=== PATIENT | female | born 2000 | race Caucasian/White ===

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

== ENCOUNTER 2023-05-15 15:41 | Observation (INO) | payer OTHER, MEDICAID, SELFPAY ==
[2023-05-15 16:06] LABS: Add Manual Diff / Slide Review NO; Basophils Absolute Auto 100 /uL (0-100); Basophils Percent Auto 0.7 % (0-2); Eosinophils Absolute Auto 100 /uL (0-450); Eosinophils Percent Auto 0.5 % (2-4); Hematocrit 35.3 % (36-46); Hemoglobin 12.3 g/dL (12.0-16.0); Lymphocytes Absolute Auto 2200 /uL (1100-4500); Lymphocytes Percent Auto 17.3 % (25-40); Mean Corpuscular HGB Conc 34.8 % (30-36); Mean Corpuscular Hemoglobin 31.1 PG (26-34); Mean Corpuscular Volume 89.3 fL (80-100); Monocytes Absolute Auto 800 /uL (0-900); Monocytes Percent Auto 6.5 % (3-14); Neutrophils Absolute Auto 9500 /uL (1500-7000); Platelet Count 257 X10^3/uL (150-400); Red Blood Cell Count 3.95 X10^6/uL (4.0-5.2); Red Cell Distribution Width 13.2 % (11.6-14.8); White Blood Cell Count 12.7 X10^3/uL (4.5-11.0)
[2023-05-15] MEDS: LACTATED RINGERS 1,000 ML 1000 ML IV ×2 (16:13→20:00)
[2023-05-15 16:17] LABS: Alanine Aminotransferase 23 IU/L (<35); Albumin 3.8 g/dL (3.5-5.0); Albumin Globulin Ratio 1.2 (1.0-2.8); Alkaline Phosphatase 90 U/L (38-126); Aspartate Aminotransferase 26 IU/L (14-36); BUN Creatinine Ratio 15.4 (6-22); Bilirubin Total 0.5 mg/dL (0.2-1.3); Blood Urea Nitrogen 6 mg/dL (7-17); Calcium 8.7 mg/dL (8.4-10.2); Carbon Dioxide 22 mmol/L (22-32); Chloride 104 mmol/L (98-107); Estimated Glomerular Filt Rate > 60 mL/min (>60); Globulin 3.2 g/dL (1.7-4.1); Glucose 87 mg/dL (70-100); HEMOLYSIS < 15 (0-50); Potassium 3.9 mmol/L (3.4-5.1); Sodium 133 mmol/L (137-145)
[2023-05-15] MEDS: TRAMADOL 50 MG TABLET 100 MG PO (16:18)
[2023-05-15] MEDS: SUMAtriptan 25 MG TABLET 100 MG PO (16:32)
[2023-05-15] MEDS: OXYCODONE IR 10 MG TABLET PO (18:18)
[2023-05-15] MEDS: SUMAtriptan 6 MG/0.5 ML VIAL SUBCUT (18:19)
[2023-05-15] MEDS: hydrOXYzine pamoate 25 MG CAPSULE PO (18:19)
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
== END 2023-05-15 20:56 | disposition home or self-care (01) ==
LOC: LABOR 15:44
PROVIDERS: Admitting Provider Obstetrics & Gynecology; PCP Advanced Practice Midwife; Referring Provider Obstetrics & Gynecology; Visit Provider Obstetrics & Gynecology
DX: O26.893 Other specified pregnancy related conditions, third trimester (principal); G43.109 Migraine with aura, not intractable, without status migrainosus; O09.893 Supervision of other high risk pregnancies, third trimester; Z3A.32 32 weeks gestation of pregnancy
CPT/HCPCS: 59025; 59050; 80053; 85025; 96360; 96372; G0378; G0379; J3030

== ENCOUNTER 2023-06-18 11:25 | Outpatient (CLI) | payer OTHER, MEDICAID, SELFPAY ==
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
[2023-06-18] MEDS: ONDANSETRON 4 MG ODT 8 MG SL (12:06)
[2023-06-18] MEDS: OXYCODONE IR 10 MG TABLET PO (12:25)
[2023-06-18 12:35] LABS: Creatinine Urine Random 121.5 mg/dL; Protein (Total) Urine Random 6 mg/dL (0-12); Protein Creatinine Ratio Urine 0.04 GRAM/24H
== END 2023-06-18 13:20 | disposition home or self-care (01) ==
LOC: LABOR 11:57 → OB 06-21 06:14
PROVIDERS: Nurse Practitioner Obstetrics & Gynecology; PCP Advanced Practice Midwife; Referring Provider Advanced Practice Midwife; Visit Provider Advanced Practice Midwife
DX: O09.93 Supervision of high risk pregnancy, unspecified, third trimester (principal); O26.893 Other specified pregnancy related conditions, third trimester; G43.109 Migraine with aura, not intractable, without status migrainosus; Z3A.37 37 weeks gestation of pregnancy
CPT/HCPCS: 59025; 82570; 84156; G0378; G0379

== ENCOUNTER 2023-06-28 16:01 | Outpatient (CLI) | payer OTHER, MEDICAID, SELFPAY ==
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
== END 2023-06-28 17:13 | disposition home or self-care (01) ==
LOC: OB 07-01 11:55
PROVIDERS: PCP Advanced Practice Midwife; Referring Provider Advanced Practice Midwife; Visit Provider Advanced Practice Midwife
DX: O09.93 Supervision of high risk pregnancy, unspecified, third trimester (principal); Z3A.38 38 weeks gestation of pregnancy
CPT/HCPCS: 59025; 84112; G0378; G0379

== ENCOUNTER 2023-06-29 03:05 | Inpatient (IN) | payer OTHER, MEDICAID, SELFPAY ==
[2023-06-29 03:27] VITALS: BP 143/88
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
[2023-06-29] MEDS: ONDANSETRON 4 MG/2 ML INJ IV ×3 (04:04→12:02)
[2023-06-29 04:17] LABS: Add Manual Diff / Slide Review NO; Basophils Absolute Auto 200 /uL (0-100); Basophils Percent Auto 2.1 % (0-2); Eosinophils Absolute Auto 100 /uL (0-450); Eosinophils Percent Auto 0.9 % (2-4); Hemoglobin 11.8 g/dL (12.0-16.0); Lymphocytes Absolute Auto 3200 /uL (1100-4500); Lymphocytes Percent Auto 30.1 % (25-40); Mean Corpuscular HGB Conc 34.7 % (30-36); Mean Corpuscular Hemoglobin 29.7 PG (26-34); Mean Corpuscular Volume 85.4 fL (80-100); Monocytes Absolute Auto 900 /uL (0-900); Monocytes Percent Auto 8.6 % (3-14); Neutrophils Absolute Auto 6200 /uL (1500-7000); Neutrophils Percent Auto 58.3 % (50-75); Platelet Count 250 X10^3/uL (150-400); Red Blood Cell Count 3.98 X10^6/uL (4.0-5.2); Red Cell Distribution Width 13.3 % (11.6-14.8); White Blood Cell Count 10.7 X10^3/uL (4.5-11.0)
[2023-06-29 04:22] VITALS: BP 111/76; PULSE 94; RESP 16; TEMP 2.2; TEMP 36
[2023-06-29 06:52] LABS: Alanine Aminotransferase 16 IU/L (<35); Albumin 3.6 g/dL (3.5-5.0); Albumin Globulin Ratio 1.1 (1.0-2.8); Alkaline Phosphatase 163 U/L (38-126); Aspartate Aminotransferase 25 IU/L (14-36); BUN Creatinine Ratio 13.8 (6-22); Bilirubin Total 0.8 mg/dL (0.2-1.3); Blood Urea Nitrogen 9 mg/dL (7-17); Calcium 8.4 mg/dL (8.4-10.2); Carbon Dioxide 21 mmol/L (22-32); Chloride 100 mmol/L (98-107); Estimated Glomerular Filt Rate > 60 mL/min (>60); Globulin 3.4 g/dL (1.7-4.1); Glucose 92 mg/dL (70-100); HEMOLYSIS < 15 (0-50); Potassium 3.8 mmol/L (3.4-5.1); Sodium 132 mmol/L (137-145)
[2023-06-29] MEDS: FENT 2MCG/ML BUPIV 0.1% EPI 200 MCG/100 ML PLAST..BAG 6 MCG EPIDURAL (07:10)
--- NOTE | 2023-06-29 07:22 | PM.OBPNLAB ---
Date/Time Date Patient Seen: 06/29/23 Time Patient Seen: 06:15 Pain Control Pain control: epidural and other Comments: Erin initially used nitrous oxide, then was in the tub for approx 1 hour, now getting out and requesting epidural. Pelvic Exam Dilation (cm): 5.5 Effacement (%): 90 station: -1 Amniotic membrane status: Ruptured (0452, clear fluid. Bleeding while on toilet, with 2 golf ball sized clots, approx 0530.) Comments: Vital signs: 109/65 after epidural SpO2: 100 Pulse: 75 bpm Temp: 36.0 C Pain: 3 Contractions Contraction frequency (min): 4 Contraction pattern: Regular Contraction intensity: Strong/Firm Status status: Category l Heart Rate Baseline: 110 Monitor Accelerations: Present Monitor Decelerations: Absent Monitor Variability: Moderate Assessment and Plan Assessment: active labor Plan: continuous present management Comments: at 39w0d GBS neg Rh pos History severe pre-eclampsia Normotensive Bleeding in active labor FHR Cat 1 Epidural placement now. Review reassuring FHR and unsure cause for bleeding. Consult/inform MD present in unit who agrees to stay the course due to baby's normal FHR and regular contraction pattern. Anticipate NSVB.
[2023-06-29] MEDS: LACTATED RINGERS 1,000 ML 100 ML IV ×2 (08:45→21:14)
--- NOTE | 2023-06-29 09:55 | PM.OBPNLAB ---
Date/Time Date Patient Seen: 06/29/23 Time Patient Seen: 09:55 Pain Control Pain control: tolerating well and epidural Comments: Erin is resting on her R side with an epidural that is working well. Feeling intense rectal pressure that comes and goes with contractions. Has been able to sleep for the last few hours. Supportive partner PARIS remains at bedside. VS: BP: 103/58 mmHg HR: 73bpm Sp02: 96% T: 36.5 C Pelvic Exam Dilation (cm): 9 Effacement (%): 100 station: 0 Amniotic membrane status: Ruptured (AROM of bulging bag, clear and bloody fluid ) Contractions Contraction frequency (min): 4 (2-5) Contraction duration (min): 1 (1-2) Contraction pattern: Regular Contraction intensity: Strong/Firm Status status: Category l Heart Rate Baseline: 115 Monitor Accelerations: Present Monitor Decelerations: Absent Monitor Variability: Moderate Assessment and Plan Comments: A: at 39.0 weeks Active labor AROM, clear and bloody fluid GBS negative Normotensive FHR Cat 1 P: Frequent position changes Rest Anticipate NSVB
--- NOTE | 2023-06-29 11:40 | PM.ANES.PR ---
Operative Date/Time/Diagnoses Date of procedure: 06/29/23 Time of procedure: 06:50 Pre-op diagnosis: labor pain Post-op diagnosis: same
--- NOTE | 2023-06-29 11:49 | PM.AN.REGBLK ---
Regional Block Pre-procedure Procedure: Continuous Lumbar Epidural for L&D Attending OB provider: Martita Salazar PMH/ROS narrative: Helathy requesting labor epidural PSH/Anesthesia history narrative: Denies problems with anesthesia Exam narrative: Mallampati 2, T.M. > 3 cm, good neck ROM, dentition intact ASA Class: II Labs: Hct 34.0 % (36-46) L 06/29/23 03:55 Plt Count 250 X10^3/uL (150-400) 06/29/23 03:55 Medications: Current Medications Generic Name Dose Route Start Last Admin Trade Name Freq PRN Reason Stop Dose Admin Acetaminophen 975 mg 06/29/23 03:30 Acetaminophen 325 Mg Tablet PO Q8H PRN Pain, Mild (1-3) Calcium Carbonate 1,000 mg 06/29/23 03:30 Calcium Carbonate 500 Mg Tab PO Q4HR PRN Dyspepsia Carboprost Tromethamine 250 mcg 06/29/23 03:30 Carboprost 250 Mcg/Ml Ampul IM Q90M PRN Bleeding Diphenhydramine HCl 25 mg 06/29/23 08:45 Diphenhydramine 50 Mg/Ml Vial IV Q10M PRN Pruritis Fentanyl 100 mcg 06/29/23 03:30 Fentanyl 100 Mcg/2 Ml Inj IV Q1H PRN Pain, Severe (7-10) Oxytocin/Lactated Ringer's 30 unit in 500 mls @ 200 mls/hr 06/29/23 03:30 Oxytocin Premix IV CONT PRN Bleeding Protocol Tranexamic Acid 1,000 mg/ 100 mls @ 200 mls/hr 06/29/23 03:30 Sodium Chloride IV NOW PRN Bleeding Lactated Ringer's 1,000 mls @ 100 mls/hr 06/29/23 03:30 Lactated Ringers IV CONT LIZZY FENT 2MCG/ML BUPIV 0.1% EPI 200 mcg in 100 mls @ 6 mls/hr 06/29/23 08:45 Fentanyl/Bupiv/Ns 2mcg/Ml - 0.1% EPIDURAL CONT LIZZY Lidocaine HCl 20 ml 06/29/23 03:30 Lidocaine 1% 20 Ml INJ INTRA-OP PRN Post Delivery Methylergonovine Maleate 0.2 mg 06/29/23 03:30 Methylergonovine 0.2 Mg Tablet PO Q6HR PRN Heavy Bleeding Methylergonovine Maleate 0.2 mg 06/29/23 03:30 Methylergonovine 0.2 Mg/Ml Vial IM NOW PRN Bleeding Misoprostol 800 mcg 06/29/23 03:30 Misoprostol 200 Mcg Tablet OK NOW PRN Bleeding Misoprostol 400 mcg 06/29/23 03:30 Misoprostol 200 Mcg Tablet SL NOW PRN Bleeding Naloxone HCl 0.2 mg 06/29/23 03:30 Naloxone 0.4 Mg/Ml Vial IV Q2MIN PRN Opiate Reversal Ondansetron HCl 4 mg 06/29/23 03:30 06/29/23 07:30 Ondansetron 4 Mg/2 Ml Inj IV 4 mg Q4HR PRN Administration Nausea And Vomiting Oxytocin 10 unit 06/29/23 03:30 Oxytocin 10 Unit/Ml Vial IM NOW PRN Bleeding Sertraline HCl 50 mg 06/29/23 21:00 Sertraline 50 Mg Tablet PO BEDTIME LIZZY Allergies: Allergies Allergy/AdvReac Type Severity Reaction Status Date / Time morphine Allergy Severe Anaphylaxis Verified 06/29/23 03:29 Procedure Insertion date: 06/29/23 Insertion time: 06:50 Prep/Local: 1% lidocaine (prep with Chloroprep) Interspace: L4-5 Patient position: sitting Needle: 18 gauge Hustead Loss of resistance with: saline DES at (cm): 5 Catheter placed at SKIN (cm): 10 Sensory level: T10 Insertion: No CSF, No Blood, No Paresthesia with insertion, No Paresthesia with injection and No Test dose reaction Initial Medications TEST DOSE time: 07:03 TEST DOSE: 1.5% lidocaine with epinephrine 1:200k (mL): 5 BOLUS DOSE time: 07:04 BOLUS DOSE (mL): 5 BOLUS DOSE med: other (2% Lidocaine) Infusion INFUSION: 0.125% bupivacaine and with fentanyl 2 mcg/mL Initial rate (mL/hr): 10 Post-procedure Anesthesia time START: 06:50 Post-procedure Anesthesia Assessment: Yes CV function: HR/BP stable, Yes Resp function: RR/sat/airway adequate, Yes Post-op hydration adequate, Yes Pain control adequate, Yes Nausea & vomiting absent, Yes Temperature > 36 C, Yes Mental status appropriate and Yes Anesthesia complications
[2023-06-29] MEDS: METHYLERGONOVINE 0.2 MG/ML VIAL IM (12:40)
--- NOTE | 2023-06-29 13:01 | PM.OBPRVD ---
Labor & Delivery Delivery date: 06/29/23 Intrapartal Events: Bleeding Cervical ripening method: none Induction method: none Delivery augmentation: rupture of membranes Delivery monitor: external FHT Route of delivery: L&D Laceration Description: None Quantitative Blood Loss: 1,704 Anesthesia Type: Epidural Complications: bleeding during labor; PPH with placental delivery Narrative: Labor progressed well following admission to the center. Bleeding noted during labor, both blood tinged amniotic fluid and two golf ball sized clots. FHR Cat 1 throughout most of the first stage of labor. No antibiotics were given and there were no signs of infection. Erin felt intense constant rectal pressure at 1120, was fully dilated and pushed effectively for an average 2nd stage. FHR was Cat 2 throughout 2nd stage. NSVB of baby, ROP, at 1227, shoulders delivered easily. Baby was placed on maternal abdomen; Erin laughed and cried holding her . Apgars 9/9. They remained skin to skin while cord was cut and placenta was delivered. Bleeding noted with delivery of , amniotic fluid sac filled with blood rested at perineum. Pitocin was started at the normal rate and then increased to a bolus due to brisk bleeding prior to placental delivery. 3 vessel cord clamped and cut by PARIS XIONG at 9 minutes of life after cord pulsing had stopped. Cord blood collected for blood typing. Placenta delivered spontaneously with maternal efforts and appeared to be intact after close inspection. Fundus immediately firm without a massage at U-2, scant bleeding. Methergine 0.2mg given. Perineum inspected and found to be intact. Tiny periurethral skid ponce noted bilaterally. Blood loss measured and estimated loss is 1,704 mL. Mom and baby left stable and is being initiated. Erin and PARIS are thrilled to meet their baby. Moderate bleeding per RN during recovery, TXA 1,000 mg given. CBC ordered for tomorrow morning. Increased bleeding at 4hrs , approximately 400ml, for total QBL > 2100ml. CBC collected at that time. Second bag of pitocin (30U, for total of 60U) administered along with PO methergine q6 hrs x4. Bleeding light/scant overnight and in the morning of 06/30, prior to discharge. Martita TOUSSAINTP, CNM, IBCLC [place] Baby 1: Infant gender: Female Presentation: vertex Position: Right Occiput Posterior Cord Vessel Description: 3 Vessels score (1 min): 9 score (5 min): 9 weight: 3.677 kg Plan for aftercare: Routine care
[2023-06-29] MEDS: KETOROLAC 30 MG/ML VIAL IV (13:15)
[2023-06-29] MEDS: ACETAMINOPHEN 325 MG TABLET 975 MG PO (13:16)
[2023-06-29] MEDS: DERMOPLAST SPRAY 20% 60 ML 1 SPRAY TOP (13:18)
[2023-06-29] MEDS: TRANEXAMIC ACID 1,000 MG in SODIUM CHLORIDE 0.9% 100 ML 200 MG IV (13:30)
[2023-06-29] MEDS: OXYCODONE IR 5 MG TABLET PO (14:54)
[2023-06-29] MEDS: METHYLERGONOVINE 0.2 MG TABLET PO ×2 (16:40→22:42)
[2023-06-29] MEDS: OXYTOCIN PREMIX 30 UNIT/500 ML PLAST..BAG 250 UNIT IV (16:41)
[2023-06-29 19:59] LABS: Add Manual Diff / Slide Review NO; Basophils Absolute Auto 100 /uL (0-100); Basophils Percent Auto 0.6 % (0-2); Eosinophils Absolute Auto 0 /uL (0-450); Eosinophils Percent Auto 0.1 % (2-4); Hematocrit 26.3 % (36-46); Hemoglobin 9.2 g/dL (12.0-16.0); Lymphocytes Absolute Auto 1800 /uL (1100-4500); Lymphocytes Percent Auto 17.9 % (25-40); Mean Corpuscular HGB Conc 34.9 % (30-36); Mean Corpuscular Hemoglobin 30.3 PG (26-34); Mean Corpuscular Volume 86.8 fL (80-100); Monocytes Absolute Auto 800 /uL (0-900); Monocytes Percent Auto 8.2 % (3-14); Neutrophils Absolute Auto 7400 /uL (1500-7000); Neutrophils Percent Auto 73.2 % (50-75); Platelet Count 178 X10^3/uL (150-400); Red Blood Cell Count 3.03 X10^6/uL (4.0-5.2); Red Cell Distribution Width 13.2 % (11.6-14.8); White Blood Cell Count 10.1 X10^3/uL (4.5-11.0)
[2023-06-29] MEDS: SERTRALINE 50 MG TABLET PO (21:13)
[2023-06-29] MEDS: HYDROCODONE/ACET 5/325 TABLET 1 TAB PO (21:13)
[2023-06-30] MEDS: METHYLERGONOVINE 0.2 MG TABLET PO ×2 (04:33→10:01)
[2023-06-30] MEDS: HYDROCODONE/ACET 5/325 TABLET 1 TAB PO (04:33)
[2023-06-30 08:26] LABS: Add Manual Diff / Slide Review NO; Basophils Absolute Auto 100 /uL (0-100); Basophils Percent Auto 0.6 % (0-2); Eosinophils Absolute Auto 100 /uL (0-450); Eosinophils Percent Auto 0.8 % (2-4); Hematocrit 25.6 % (36-46); Hemoglobin 8.9 g/dL (12.0-16.0); Lymphocytes Absolute Auto 2200 /uL (1100-4500); Lymphocytes Percent Auto 25.8 % (25-40); Mean Corpuscular HGB Conc 34.9 % (30-36); Mean Corpuscular Hemoglobin 30.4 PG (26-34); Mean Corpuscular Volume 87.1 fL (80-100); Monocytes Absolute Auto 700 /uL (0-900); Monocytes Percent Auto 7.8 % (3-14); Neutrophils Absolute Auto 5600 /uL (1500-7000); Platelet Count 167 X10^3/uL (150-400); Red Blood Cell Count 2.94 X10^6/uL (4.0-5.2); Red Cell Distribution Width 13.1 % (11.6-14.8); White Blood Cell Count 8.6 X10^3/uL (4.5-11.0)
[2023-06-30] MEDS: ACETAMINOPHEN 325 MG TABLET 975 MG PO (09:26)
[2023-06-30] MEDS: IRON SUCROSE 200 MG in SODIUM CHLORIDE 0.9% 100 ML 220 MG IV (10:20)
--- NOTE | 2023-06-30 11:34 | PM.OBDS.1 ---
Discharge Providers Provider Date of admission: 06/29/23 03:05 Discharge Date: 06/30/23 Primary care physician: Martita Salazar CNM, ARNP Discharge provider: Martita Salazar CNM, ARNP Summary Hospital Course Date Patient Seen: 06/30/23 Time Patient Seen: 11:52 Diagnoses: O80, o72 Hospital Course: Admitted in early labor. Progressed to active labor and second stage with complication of bleeding in labor. NSVB of vigorous girl, ROP, at 12:27. PPH. Received Pitocin x2 bags (60U), IM methergine, TXA and PO methergine for 24 hrs, Received IV Iron x1. Asymptomatic, ambulating independently. Voiding, passing gas_, pain well controlled with Ibuprofen and Tylenol and oxycodone. well. Peripartum Data Delivery Method: Natural Vaginal Laceration Description: None Episiotomy description: None complications: other (PPH) Hartman 1: Gender: Female Disposition of : home Discharge Diagnosis (1) hemorrhage: Status: Acute (2) Encounter for vaginal delivery: Status: Acute (3) Breast feeding status of mother: Status: Acute Status at Discharge Cognitive/behavioral status at discharge: oriented and calm Functional status at discharge: independent ambulation Overall status at discharge: patient is progressing back to baseline Time Spent with Patient Time attestation: Total time spent providing and/or coordinating discharge services: Time spent: Less than 30 minutes Specific discharge activities: discharge teaching Objective Labs 06/30/23 08:20 06/29/23 06:31 Labs: Laboratory Results - last 24 hr 06/29/23 06/30/23 19:55 08:20 WBC 10.1 8.6 RBC 3.03 L 2.94 L Hgb 9.2 L 8.9 L Hct 26.3 L 25.6 L MCV 86.8 87.1 MCH 30.3 30.4 MCHC 34.9 34.9 RDW 13.2 13.1 Plt Count 178 167 Neut % (Auto) 73.2 65.0 Lymph % (Auto) 17.9 L 25.8 [place] % (Auto) 8.2 7.8 Eos % (Auto) 0.1 L 0.8 L Baso % (Auto) 0.6 0.6 Neut # (Auto) 7400 H 5600 Lymph # (Auto) 1800 2200 [place] # (Auto) 800 700 Eos # (Auto) 0 100 Baso # (Auto) 100 100 Exam Vital Signs (past 8 hours): BP: 121/80 mmHg HR: 81 bpm RR: 17/min T: 99.1F t Sp02: 98% Other: Fundus firm at U-1, midline. Lochia scant Perineum intact with minimal edema Discharge Plan Discharge Plan Patient Disposition: Home Provider Discharge Comment: Recommend oral Iron and dietary iron through 6 weeks due to blood loss Discharge orders & Medications Prescriptions: Continued sertraline [Zoloft] 50 mg tablet 50 mg PO DAILY Discontinued control PO Follow up/Referrals: Martita Salazar, CNM, ORDER PROCESSING MANAGER [Primary Care Provider] - 2 Weeks (2 weeks and 6 weeks as scheduled; see email ) Diet/Activity/Treatments Diet: Diet as Tolerated and Regular Diet comment: Increase fiber & fluid to keep stool stoft and iron rich foods Activity: Low bautista x2 weeks Cold/Heat Therapy: As needed Skin/Wound/Dressing Care Skin care: Usual Report to your healthcare provider any signs of infection, such as:: chills, fever, increased pain, unusual drainage and unusual redness Visit Report/Discharge Packet Stand Alone Forms: Patient Portal/API Discharge Data Primary Care Provider: Martita Salazar Attending Provider: Martita Salazar Admit Date/Time: 06/29/23 03:05
[2023-06-30 13:21] VITALS: BP 121/80; PULSE 81; RESP 17; TEMP 37.3
[2023-06-30 14:14] VITALS: TEMP 36.7
[2023-06-30] MEDS: IBUPROFEN 400 MG TABLET 800 MG PO (14:14)
== END 2023-06-30 14:40 | disposition home or self-care (01) | DRG 560 ==
PROVIDERS: Admitting Provider Advanced Practice Midwife; PCP Advanced Practice Midwife; Referring Provider Advanced Practice Midwife; Visit Provider Advanced Practice Midwife
DX: O99.344 Other mental disorders complicating childbirth (principal); O72.1 Other immediate postpartum hemorrhage; Z3A.39 39 weeks gestation of pregnancy; Z37.0 Single live birth; F41.9 Anxiety disorder, unspecified; F32.A Depression, unspecified; O99.892 Other specified diseases and conditions complicating childbirth; G43.909 Migraine, unspecified, not intractable, without status migrainosus; O76 Abnormality in fetal heart rate and rhythm complicating labor and delivery
CPT/HCPCS: 36415; 59025; 59050; 80053; 84112; 85025; 86850; 86900; 86901; G0378; G0379; J1756; J1885; J2210; J2405; J2590